=== PATIENT | female | born 1990 | race Caucasian/White ===

== ENCOUNTER 2019-06-09 17:45 | Emergency (ER) | payer BC, OTHER ==
[2019-06-09] MEDS ORDERED: Meclizine 25 MG Tab PO ONE (18:00)
[2019-06-09] MEDS ORDERED: Sodium Chloride 0.9% 1,000 ML IV ONE (18:00)
--- NOTE | 2019-06-09 18:25 | EDM.PDOC ---
ED HPI GENERAL MEDICAL PROBLEM - General Chief Complaint: ENT Problem Stated Complaint: DIZZY Time Seen by Provider: 06/09/19 17:48 Source of Information: Reports: Patient History Limitations: Reports: No Limitations - History of Present Illness INITIAL COMMENTS - FREE TEXT/NARRATIVE: HISTORY AND PHYSICAL: History of present illness: Patient is a 29-year-old female presents to the ED today with concern of dizziness since this morning. Patient states that she feels as if the room is spinning and this is worse when she stands up. Patient states she does not have the dizziness when she lays down or sitting. Patient states she has not taken anything for her symptoms. Patient states she does have some nausea due to the dizziness but has not vomited. Patient denies any head injury or trauma. Patient states she has a history of bipolar disorder but denies any other health history. Patient denies fever, chills, chest pain, shortness of breath, or cough. Denies headache, neck stiff ness, change in vision, syncope, or near syncope. Denies nausea, vomiting, abdominal pain, diarrhea, constipation, or dysuria. Has not noted any blood in urine or stool. Patient has been eating and drinking appropriately. Review of systems: As per history of present illness and below otherwise all systems reviewed and negative. Past medical history: As per history of present illness and as reviewed below otherwise noncontributory. Surgical history: As per history of present illness and as reviewed below otherwise noncontributory. Social history: See social history for further information Family history: As per history of present illness and as reviewed below otherwise noncontributory. Physical exam: General: Patient is alert, oriented, and in no acute distress. Patient sitting comfortably on exam table. HEENT: Atraumatic, normocephalic, pupils equal and reactive bilaterally, negative for conjunctival pallor or scleral icterus, mucous membranes moist, TMs normal bilaterally, throat clear, neck supple, nontender, trachea midline. No drooling or trismus noted. No meningeal signs. No hot potato voice noted. Lungs: Clear to auscultation, breath sounds equal bilaterally, chest nontender. Heart: S1S2, regular rate and rhythm without overt murmur Abdomen: Soft, nondistended, nontender. Negative for masses or hepatosplenomegaly. Negative for costovertebral tenderness. Pelvis: Stable nontender. Genitourinary: Deferred. Rectal: Deferred. Skin: Intact, warm, dry. No lesions or rashes noted. Extremities: Atraumatic, negative for cords or calf pain. Neurovascular unremarkable. Neuro: Awake, alert, oriented. Cranial nerves II through XII unremarkable. Cerebellum unremarkable. Motor and sensory unremarkable throughout. Exam nonfocal. Notes: Luis Eduardo expresses complete resolution of symptoms with therapeutics today. Discussed the importance for follow-up with a primary care provider. Voices understanding and is agreeable to plan of care. Denies any further questions or concerns at this time. Diagnostics: CBC, CMP, EKG, chest x-ray, head CT, troponin (patient declines UA) Therapeutics: Saline, meclizine Prescription: Meclizine Impression: Vertigo Plan: 1. Take medication as prescribed. You can alternate ibuprofen and Tylenol as directed for pain and discomfort. 2. Follow-up with her primary care provider as discussed. Return to the ED as needed and as discussed. Definitive disposition and diagnosis as appropriate pending reevaluation and review of above. - Related Data Allergies Allergy/AdvReac Type Severity Reaction Status Date / Time hydrocodone Allergy Nausea Verified 12/05/13 13:13 Home Meds: Home Meds Sertraline [Zoloft] 150 mg PO DAILY 12/06/13 [History] Estradiol 0.5 mg PO DAILY 06/09/19 [History] [place] Carbonate 900 mg PO ASDIRECTED 06/09/19 [History] Pantoprazole [ProTONIX] 40 mg PO DAILY 06/09/19 [History] Past Medical History - Past Health History Medical/Surgical History: Denies Medical/Surgical History Psychiatric History: Reports: Bipolar - Infectious Disease History Infectious Disease History: Reports: Chicken Pox - Past Surgical History Female Surgical History: Reports: Hysterectomy Social & Family History - Family History Family Medical History: Noncontributory - Tobacco Use Smoking Status *Q: Current Every Day Smoker Years of Tobacco use: 12 Packs/Tins Daily: 0.5 - Caffeine Use Caffeine Use: Reports: None - Recreational Drug Use Recreational Drug Use: No ED ROS GENERAL - Review of Systems Review Of Systems: ROS reveals no pertinent complaints other than HPI. ED EXAM, GENERAL - Physical Exam Exam: See Below (See dictation) Course - Vital Signs Last Recorded V/S: Last Vital Signs Temp 96.9 F 06/09/19 17:50 Pulse 72 10/21/19 17:50 Resp 16 06/09/19 17:50 BP 108/68 06/09/19 17:50 Pulse Ox 100 06/09/19 17:50 Orthostatic Blood Pressure [ 111/49 Side, Right] Orthostatic Blood Pressure [ 105/57 Sitting] Orthostatic Blood Pressure [ 101/56 Supine] - Orders/Labs/Meds Orders: Active Orders 24 hr Category Date Time Status EKG 12 Lead [EKG Documentation Completion] [RC] STAT Care 06/09/19 17:47 Active Orthostatic Vital Signs [RC] ASDIRECTED Care 06/09/19 18:00 Active UA RFX CHANTEL AND CULT IF INDIC [URIN] Stat Lab 06/09/19 19:02 Ordered Labs: Laboratory Tests 06/09/19 06/09/19 Range/Units 18:12 18:12 WBC 6.51 (4.0-11.0) K/uL RBC 4.38 (4.30-5.90) M/uL Hgb 13.2 (12.0-16.0) g/dL Hct 39.7 (36.0-46.0) % MCV 90.6 (80.0-98.0) fL MCH 30.1 (27.0-32.0) pg MCHC 33.2 (31.0-37.0) g/dL RDW Std Deviation 44.3 (28.0-62.0) fl RDW Coeff of Deya 13 (11.0-15.0) % Plt Count 227 (150-400) K/uL MPV 9.70 (7.40-12.00) fL Neut % (Auto) 55.9 (48.0-80.0) % Lymph % (Auto) 33.6 (16.0-40.0) % [place] % (Auto) 6.5 (0.0-15.0) % Eos % (Auto) 3.7 (0.0-7.0) % Baso % (Auto) 0.3 (0.0-1.5) % Neut # (Auto) 3.6 (1.4-5.7) K/uL Lymph # (Auto) 2.2 (0.6-2.4) K/uL [place] # (Auto) 0.4 (0.0-0.8) K/uL Eos # (Auto) 0.2 (0.0-0.7) K/uL Baso # (Auto) 0.0 (0.0-0.1) K/uL Nucleated RBC % 0.0 /100WBC Nucleated RBCs # 0 K/uL Sodium 139 (136-145) mmol/L Potassium 3.8 (3.5-5.1) mmol/L Chloride 105 (98-107) mmol/L Carbon Dioxide 26.3 (21.0-32.0) mmol/L BUN 10 (7.0-18.0) mg/dL Creatinine 0.9 (0.6-1.0) mg/dL Est Cr Clr Drug Dosing 87.12 mL/min Estimated GFR (MDRD) > 60.0 ml/min Glucose 89 (74-106) mg/dL Calcium 9.1 (8.5-10.1) mg/dL Total Bilirubin 0.3 (0.2-1.0) mg/dL AST 28 (15-37) IU/L ALT 53 (14-63) IU/L Alkaline Phosphatase 64 (46-116) U/L Troponin I < 0.050 (0.000-0.056) ng/mL Total Protein 7.6 (6.4-8.2) g/dL Albumin 4.3 (3.4-5.0) g/dL Globulin 3.3 (2.6-4.0) g/dL Albumin/Globulin Ratio 1.3 (0.9-1.6) Meds: Medications Discontinued Medications Generic Name Dose Route Start Last Admin Trade Name Freq PRN Reason Stop Dose Admin Sodium Chloride 1,000 mls @ 999 mls/hr 06/09/19 18:00 06/09/19 18:18 Normal Saline IV 06/09/19 19:00 999 mls/hr STAT ONE Administration Meclizine HCl 25 mg 06/09/19 18:00 06/09/19 18:18 Antivert PO 06/09/19 18:01 25 mg ONETIME ONE Administration Departure - Departure Time of Disposition: 19:35 Disposition: Home, Self-Care 01 Clinical Impression: Vertigo - Discharge Information Referrals: PCP,Unknown [Primary Care Provider] - Forms: ED Department Discharge Additional Instructions: The following information is given to patients seen in the emergency department who are being discharged to home. This information is to outline your options for follow-up care. We provide all patients seen in our emergency department with a follow-up referral. The need for follow-up, as well as the timing and circumstances, are variable depending upon the specifics of your emergency department visit. If you don't have a primary care physician on staff, we will provide you with a referral. We always advise you to contact your personal physician following an emergency department visit to inform them of the circumstance of the visit and for follow-up with them and/or the need for any referrals to a consulting specialist. The emergency department will also refer you to a specialist when appropriate. This referral assures that you have the opportunity for follow-up care with a specialist. All of these measure are taken in an effort to provide you with optimal care, which includes your follow-up. Under all circumstances we always encourage you to contact your private physician who remains a resource for coordinating your care. When calling for follow-up care, please make the office aware that this follow-up is from your recent emergency room visit. If for any reason you are refused follow-up, please contact the [facility] Emergency Department at and asked to speak to the emergency department charge nurse. [facility] [address] [place] [id number] [address] [id number] 1. Take medication as prescribed. You can alternate ibuprofen and Tylenol as directed for pain and discomfort. 2. Follow-up with your primary care provider as discussed. Return to the ED as needed and as discussed. - My Orders Last 24 Hours: My Active Orders 06/09/19 18:00 Orthostatic Vital Signs [RC] ASDIRECTED 06/09/19 19:02 UA RFX CHANTEL AND CULT IF INDIC [URIN] Stat - Assessment/Plan Last 24 Hours: My Active Orders 06/09/19 18:00 Orthostatic Vital Signs [RC] ASDIRECTED 06/09/19 19:02 UA RFX CHANTEL AND CULT IF INDIC [URIN] Stat
[2019-06-09 18:48] LABS: BLOOD UREA NITROGEN,BUN 10 mg/dL (7.0-18.0); CARBON DIOXIDE,CO2 26.3 mmol/L (21.0-32.0); CHLORIDE,CL 105 mmol/L (98-107); GLUCOSE RANDOM 89 mg/dL (74-106); POTASSIUM,K 3.8 mmol/L (3.5-5.1); SODIUM,NA 139 mmol/L (136-145)
--- NOTE | 2019-06-09 19:01 | CT ---
INDICATION: Dizziness, nausea TECHNIQUE: CT head without contrast. COMPARISON: None FINDINGS: CSF spaces: Within normal limits for age. Brain parenchyma: The stanley-white differentiation is normal. No sign of mass, hemorrhage, or midline shift. Skull base and calvarium: The visualized paranasal sinuses and mastoid air cells demonstrate no acute or significant findings. The visualized orbits are grossly unremarkable. No skull fractures. IMPRESSION: Unremarkable noncontrast head CT. Please note that all CT scans at this facility use dose modulation, iterative reconstruction, and/or weight-based dosing when appropriate to reduce radiation dose to as low as reasonably achievable. Dictated by Vijaya Talley MD @ Jun 09 2019 6:56PM Signed by Dr. Vijaya Talley @ Jun 09 2019 6:59PM
--- NOTE | 2019-06-09 19:06 | CR ---
INDICATION: Dizziness. Nausea. Hot flashes. TECHNIQUE: PA chest. FINDINGS: Clear lungs. Normal heart size and pulmonary vascularity. Normal included skeletal thorax. IMPRESSION: Negative PA chest. Dictated by Milan Orta MD @ Jun 09 2019 7:04PM Signed by Dr. Milan Orta @ Jun 09 2019 7:05PM
== END 2019-06-09 19:45 | disposition home or self-care (01) ==
LOC: MW.ED 17:45
DX: R42 Dizziness and giddiness (principal); F17.210 Nicotine dependence, cigarettes, uncomplicated; F31.9 Bipolar disorder, unspecified; Z79.899 Other long term (current) drug therapy; Z88.5 Allergy status to narcotic agent
CPT/HCPCS: 36415; 70450; 71045; 80053; 84484; 85025; 93005; 96360; 99284; A9270; J7040

== ENCOUNTER 2019-08-04 16:19 | Emergency (ER) | payer OTHER ==
[2019-08-04] MEDS ORDERED: LORazepam 2 MG/ML SDV IVPUSH ONE (16:33)
[2019-08-04] MEDS ORDERED: Sodium Chloride 0.9% 1,000 ML IV ONE (16:33)
--- NOTE | 2019-08-04 16:47 | EDM.PDOC ---
ED HPI GENERAL MEDICAL PROBLEM - General Chief Complaint: Neuro Symptoms/Deficits Stated Complaint: DIZZINESS ,WEAKNESS, Time Seen by Provider: 08/04/19 16:42 Source of Information: Reports: Patient - History of Present Illness INITIAL COMMENTS - FREE TEXT/NARRATIVE: HISTORY AND PHYSICAL: History of present illness: [Pt with BPD 1, vertigo, presents with dizziness, she is currently on meclizine with little benefit per patient, however, NAD at this time, she does complain of nausea, no active vomiting in ED, no c/s/cp/sob/wise/palp vertigo is positional, worse with looking up and ifmy-pd-mnaxu menuevers she has beeen stable on her dosing of LI+ for several months but did have adjustment 2-3 months prior some time w/o change per patient Review of systems: As per history of present illness and below otherwise all systems reviewed and negative. Past medical history: As per history of present illness and as reviewed below otherwise noncontributory. Surgical history: As per history of present illness and as reviewed below otherwise noncontributory. Social history: No reported history of drug or alcohol abuse. Family history: As per history of present illness and as reviewed below otherwise noncontributory. Physical exam: HEENT: Atraumatic, normocephalic, pupils reactive, negative for conjunctival pallor or scleral icterus, mucous membranes moist, throat clear, neck supple, nontender, trachea midline.worsening symptoms with nitx-it-rdbfv meneuver and looking up Lungs: Clear to auscultation, breath sounds equal bilaterally, chest nontender. Heart: S1S2, regular, negative for clicks, rubs, or JVD. Abdomen: Soft, nondistended, nontender. Negative for masses or hepatosplenomegaly. Negative for costovertebral tenderness. Pelvis: Stable nontender. Genitourinary: Deferred. Rectal: Deferred. Extremities: Atraumatic, negative for cords or calf pain. Neurovascular unremarkable. Neuro: Awake, alert, oriented. Cranial nerves II through XII unremarkable. Cerebellum unremarkable. Motor and sensory unremarkable throughout. Exam nonfocal. Diagnostics: [cbc, cmp, ua, no hcg due prashant, li level pending(send out) ekg chest [address] ] Therapeutics: [scop transderm #4no rf stop meclazine li++ level pending patient offered admission refused ] Impression: [vertigo chronic hx baseline ] Definitive disposition and diagnosis as appropriate pending reevaluation and review of above. Generalized Pain Score (Numeric/FACES): 10 - Related Data Allergies Allergy/AdvReac Type Severity Reaction Status Date / Time hydrocodone Allergy Nausea Verified 08/04/19 16:25 Home Meds: Home Meds [place] Carbonate 900 mg PO ASDIRECTED 06/09/19 [History] estradioL [Estradiol] 0.5 mg PO DAILY 06/09/19 [History] Meclizine [Antivert] 25 mg PO ASDIRECTED PRN 08/04/19 [History] Past Medical History - Past Health History Medical/Surgical History: Denies Medical/Surgical History Psychiatric History: Reports: Bipolar - Infectious Disease History Infectious Disease History: Reports: Chicken Pox - Past Surgical History HEENT Surgical History: Reports: Tonsillectomy Female Surgical History: Reports: Hysterectomy Social & Family History - Family History Family Medical History: Noncontributory - Tobacco Use Smoking Status *Q: Current Every Day Smoker Years of Tobacco use: 12 Packs/Tins Daily: 0.5 - Caffeine Use Caffeine Use: Reports: Coffee - Recreational Drug Use Recreational Drug Use: No ED ROS GENERAL - Review of Systems Review Of Systems: See Below ED EXAM, GENERAL - Physical Exam Exam: See Below Course - Vital Signs Last Recorded V/S: Last Vital Signs Temp 97.3 F 08/04/19 18:15 Pulse 63 08/04/19 18:15 Resp 16 08/04/19 18:15 BP 96/55 L 08/04/19 18:15 Pulse Ox 99 08/04/19 18:15 - Orders/Labs/Meds Orders: Active Orders 24 hr Category Date Time Status EKG Documentation Completion [RC] STAT Care 08/04/19 16:35 Active LITHIUM [REF] Stat Lab 08/04/19 16:50 Received Labs: Laboratory Tests 08/04/19 08/04/19 08/04/19 Range/Units 16:50 16:50 17:02 WBC 6.57 (4.0-11.0) K/uL RBC 4.39 (4.30-5.90) M/uL Hgb 13.2 (12.0-16.0) g/dL Hct 40.0 (36.0-46.0) % MCV 91.1 (80.0-98.0) fL MCH 30.1 (27.0-32.0) pg MCHC 33.0 (31.0-37.0) g/dL RDW Std Deviation 43.3 (28.0-62.0) fl RDW Coeff of Deya 13 (11.0-15.0) % Plt Count 202 (150-400) K/uL MPV 10.40 (7.40-12.00) fL Neut % (Auto) 63.0 (48.0-80.0) % Lymph % (Auto) 25.6 (16.0-40.0) % [place] % (Auto) 7.6 (0.0-15.0) % Eos % (Auto) 3.5 (0.0-7.0) % Baso % (Auto) 0.3 (0.0-1.5) % Neut # (Auto) 4.1 (1.4-5.7) K/uL Lymph # (Auto) 1.7 (0.6-2.4) K/uL [place] # (Auto) 0.5 (0.0-0.8) K/uL Eos # (Auto) 0.2 (0.0-0.7) K/uL Baso # (Auto) 0.0 (0.0-0.1) K/uL Nucleated RBC % 0.0 /100WBC Nucleated RBCs # 0 K/uL Sodium 143 (136-145) mmol/L Potassium 3.9 (3.5-5.1) mmol/L Chloride 107 (98-107) mmol/L Carbon Dioxide 26.8 (21.0-32.0) mmol/L BUN 13 (7.0-18.0) mg/dL Creatinine 0.8 (0.6-1.0) mg/dL Est Cr Clr Drug Dosing 98.01 mL/min Estimated GFR (MDRD) > 60.0 ml/min Glucose 89 (74-106) mg/dL Calcium 8.6 (8.5-10.1) mg/dL Total Bilirubin 0.2 (0.2-1.0) mg/dL AST 47 H (15-37) IU/L ALT 143 H (14-63) IU/L Alkaline Phosphatase 72 (46-116) U/L Total Protein 7.2 (6.4-8.2) g/dL Albumin 3.8 (3.4-5.0) g/dL Globulin 3.4 (2.6-4.0) g/dL Albumin/Globulin Ratio 1.1 (0.9-1.6) Urine Color YELLOW Urine Appearance CLEAR Urine pH 5.0 (5.0-8.0) Ur Specific [place] >= 1.030 (1.001-1.035) Urine Protein NEGATIVE (NEGATIVE) mg/dL Urine Glucose (UA) NEGATIVE (NEGATIVE) mg/dL Urine Ketones NEGATIVE (NEGATIVE) mg/dL Urine Occult Blood NEGATIVE (NEGATIVE) Urine Nitrite NEGATIVE (NEGATIVE) Urine Bilirubin NEGATIVE (NEGATIVE) Urine Urobilinogen 0.2 (<2.0) EU/dL Ur Leukocyte Esterase NEGATIVE (NEGATIVE) Meds: Medications Discontinued Medications Generic Name Dose Route Start Last Admin Trade Name Freq PRN Reason Stop Dose Admin Sodium Chloride 1,000 mls @ 999 mls/hr 08/04/19 16:33 08/04/19 16:57 Normal Saline IV 08/04/19 17:33 999 mls/hr STAT ONE Administration Pantoprazole Sodium 80 mg/ 20 mls @ 420 mls/hr 08/04/19 17:27 08/04/19 17:33 Sodium Chloride IVPUSH 08/04/19 17:29 420 mls/hr ONETIME ONE Administration Lorazepam 1 mg 08/04/19 16:33 08/04/19 16:57 Ativan IVPUSH 08/04/19 16:34 1 mg ONETIME ONE Administration Departure - Departure Time of Disposition: 16:46 Disposition: Home, Self-Care 01 Condition: Good Clinical Impression: Vertigo Clinical Impression: (Ruled Out): Burn - Discharge Information Referrals: Soledad Simeon DO [Primary Care Provider] - Forms: ED Department Discharge Additional Instructions: The following information is given to patients seen in the emergency department who are being discharged to home. This information is to outline your options for follow-up care. We provide all patients seen in our emergency department with a follow-up referral. The need for follow-up, as well as the timing and circumstances, are variable depending upon the specifics of your emergency department visit. If you don't have a primary care physician on staff, we will provide you with a referral. We always advise you to contact your personal physician following an emergency department visit to inform them of the circumstance of the visit and for follow-up with them and/or the need for any referrals to a consulting specialist. The emergency department will also refer you to a specialist when appropriate. This referral assures that you have the opportunity for follow-up care with a specialist. All of these measure are taken in an effort to provide you with optimal care, which includes your follow-up. Under all circumstances we always encourage you to contact your private physician who remains a resource for coordinating your care. When calling for follow-up care, please make the office aware that this follow-up is from your recent emergency room visit. If for any reason you are refused follow-up, please contact the [facility] emergency department at and asked to speak to the emergency department charge nurse. Sepsis Event Note - Evaluation Sepsis Screening Result: No Definite Risk - Focused Exam Vital Signs: Vital Signs Temp Pulse Resp BP Pulse Ox 08/04/19 18:15 97.3 F 63 16 96/55 L 99 08/04/19 17:34 74 16 98 08/04/19 16:26 98.1 F 79 16 109/62 99 Date Exam was Performed: 08/04/19 Time Exam was Performed: 18:22 - My Orders Last 24 Hours: My Active Orders 08/04/19 16:35 EKG Documentation Completion [RC] STAT 08/04/19 16:50 LITHIUM [REF] Stat - Assessment/Plan Last 24 Hours: My Active Orders 08/04/19 16:35 EKG Documentation Completion [RC] STAT 08/04/19 16:50 LITHIUM [REF] Stat
--- NOTE | 2019-08-04 17:15 | CR ---
Indication: Dizziness. Weakness. Fatigue. Technique: A single AP portable view of the chest was obtained. Comparison: None Findings: The right hemidiaphragm is mildly elevated. The heart is normal in size. The lungs are clear. No infiltrate, pleural effusion, or pneumothorax is identified. Impression: No acute cardiopulmonary process. Dictated by Bella Mcgill MD @ Aug 04 2019 5:12PM Signed by Dr. Bella Mcgill @ Aug 04 2019 5:12PM
[2019-08-04 17:20] LABS: BLOOD UREA NITROGEN,BUN 13 mg/dL (7.0-18.0); CARBON DIOXIDE,CO2 26.8 mmol/L (21.0-32.0); CHLORIDE,CL 107 mmol/L (98-107); GLUCOSE RANDOM 89 mg/dL (74-106); POTASSIUM,K 3.9 mmol/L (3.5-5.1); SODIUM,NA 143 mmol/L (136-145)
[2019-08-04] MEDS ORDERED: Pantoprazole 80 MG in Sodium Chloride 0.9% 20 ML IVPUSH ONE (17:27)
--- NOTE | 2019-08-04 18:08 | CT ---
INDICATION: Dizziness. Weakness TECHNIQUE: CT head without contrast. COMPARISON: 06/09/2019 FINDINGS: The ventricles and sulci are within normal limits. There is no mass effect or midline shift. There is no loss of stanley-white differentiation. There is no evidence of an acute intracranial hemorrhage. No acute calvarial fracture is seen. There is a small left maxillary sinus mucosal retention cyst or polyp. The mastoid air cells are clear. The visualized orbits are within limits. IMPRESSION: No evidence of an acute intracranial hemorrhage, mass effect or loss of stanley-white differentiation. Dictated by Alessandro Colindres MD @ 08/04/2019 6:06:22 PM Please note that all CT scans at this facility use dose modulation, iterative reconstruction, and/or weight-based dosing when appropriate to reduce radiation dose to as low as reasonably achievable. Dictated by: Alessandro Colindres MD @ 08/04/2019 18:07:25 (Electronically Signed)
== END 2019-08-04 18:45 | disposition home or self-care (01) ==
LOC: MW.ED 16:19
DX: R42 Dizziness and giddiness (principal); F17.210 Nicotine dependence, cigarettes, uncomplicated; Z88.5 Allergy status to narcotic agent
CPT/HCPCS: 36415; 70450; 71045; 80053; 80178; 81003; 85025; 93005; 96361; 96374; 96375; 99284; C9113; J2060; J7030